=== PATIENT | male | born 2000 ===

== ENCOUNTER 2023-06-02 14:39 | Emergency (ER) | payer MEDICAID, SELFPAY ==
[2023-06-02] VITALS (22 sets, daily range): BP systolic 153–180; BP diastolic 79–117; PULSE 84–107; RESP 20; TEMP 36.1; O2SAT 96–100; BMI 35.9
[2023-06-02] MEDS: EPINEPHrine 0.3 MG PEN IM (14:50)
[2023-06-02] MEDS: CETIRIZINE HCL 10 MG TABLET PO (15:01)
[2023-06-02] MEDS: METHYLPREDNISOLONE SOD SUCC 62.5 MG/ML (125) 125 MG IVP (15:08)
[2023-06-02] MEDS: diphenhydrAMINE 50 MG/ML inj 25 MG IVP (15:08)
--- NOTE | 2023-06-02 15:24 | ED.NURSE ---
Pt reports swelling has gone down on his tongue. Improved ability to talk. Tongue has decreased swelling.
--- NOTE | 2023-06-02 16:54 | ED_ITS ---
HPI - General Adult General Chief complaint: Allergic Reaction Stated complaint: Stung in tongue Time Seen by Provider: 06/02/23 14:46 Source: patient Mode of arrival: ambulatory Limitations: no limitations History of Present Illness HPI narrative: 23-year-old male coming into the ER after being stung by a bee on his tongue approximately 20 minutes ago. He states that his tongue is swollen. He denies any swelling of the lips or the back of the throat. He states that he can swallow but that his tongue feels like it is taking up a lot of space in his mouth he is having a hard time talking because of that. He denies feeling dizzy or lightheaded. He is not short of breath. He denies having a bee allergy in the past. Related Data Home Medications Medication Instructions Recorded Confirmed hydrochlorothiazide 25 mg tablet 25 mg PO DAILY 06/02/23 06/02/23 Allergies Allergy/AdvReac Type Severity Reaction Status Date / Time No Known Drug Allergies Allergy Verified 06/02/23 14:56 Review of Systems Status of ROS: Reports: 10 or more systems reviewed and unremarkable except as noted in History and below PFSH PFS Social History Smoking Status: Never smoker Do you use any of these nicotine containing products: None Second hand tobacco smoke exposure: No How often do you have a drink containing alcohol: 2-4 times a month How often do you have six or more drinks on one occasion: Never AUDIT-C Alcohol total score: 2 Non-prescribed substance use: marijuana (any form) service: No Exam Narrative: Exam Narrative: Obese, well-developed patient in no acute distress. Alert and oriented. Answers questions appropriately. Mood and affect are appropriate. Thoughts are goal oriented and rational. No tangential or magical thinking noted. Patient speaks in full sentences without needing to catch his breath. Blood pressure is elevated, vitals are otherwise normal. His voice does sound normal but he can not enunciate words properly. HEENT: Normocephalic atraumatic. Pupils are equally round reactive to light. Extraocular muscles are intact. Conjunctivae are moist without any icterus noted. Moist mucous membranes. Posterior pharynx is normal. Neck is soft without any lymphadenopathy or thyromegaly. No masses are appreciated. Tongue is swollen on the right side only. Lips appear normal, soft palate is not swollen. Cardiovascular: Heart is regular rate and rhythm S1 and S2 are present without any murmurs. Lungs: Clear to auscultation bilaterally no wheezes rhonchi or rales are appreciated. Patient takes deep breaths without any discomfort. Abdomen: Soft and nontender nondistended with normal bowel sounds. Extremities: Bilateral lower extremities are without edema. Skin: Well perfused without any obvious rashes. Const: Vital Signs, click to edit/add: Vital Signs - 24 hr 06/02/23 14:45 06/02/23 14:49 06/02/23 14:50 Temperature 97 F L Pulse Rate 100 103 H Pulse Rate [Pulse Oximeter] 100 Respiratory Rate 20 Blood Pressure 172/112 H Blood Pressure [Ri ght Upper Arm] 172/117 H Pulse Oximetry 98 97 96 Oxygen Delivery Me thod Room Air 06/02/23 15:01 06/02/23 15:05 06/02/23 15:15 Temperature Pulse Rate 105 H 93 Pulse Rate [Pulse Oximeter] Respiratory Rate Blood Pressure 180/96 H Blood Pressure [Ri ght Upper Arm] Pulse Oximetry 99 100 98 Oxygen Delivery Me thod 06/02/23 15:18 06/02/23 15:19 06/02/23 15:30 Temperature Pulse Rate 102 H 107 H 89 Pulse Rate [Pulse Oximeter] Respiratory Rate Blood Pressure 174/102 H Blood Pressure [Ri ght Upper Arm] Pulse Oximetry 98 99 99 Oxygen Delivery Me thod 06/02/23 15:32 06/02/23 15:33 06/02/23 15:47 Temperature Pulse Rate 96 91 Pulse Rate [Pulse Oximeter] Respiratory Rate Blood Pressure 160/85 H 160/104 H Blood Pressure [Ri ght Upper Arm] Pulse Oximetry 98 100 Oxygen Delivery Me thod 06/02/23 16:00 06/02/23 16:02 06/02/23 16:17 Temperature Pulse Rate 86 92 89 Pulse Rate [Pulse Oximeter] Respiratory Rate Blood Pressure 165/94 H 153/99 H Blood Pressure [Ri ght Upper Arm] Pulse Oximetry 98 97 97 Oxygen Delivery Me thod Course Course Hospital Course: Do not believe the patient is having inflected reaction, however given the fact that his tongue swelling and he feels that it is getting bigger we did give him a dose of epinephrine IM, Solu-Medrol Benadryl IV. He was monitored for 2 hours. The swelling of his tongue did go down. He was able to speak in a more normal manner. He did not feel short of breath. He denied having difficulty speaking or swallowing. He did not have any difficulty breathing. Vital Signs Vital signs: Initial Vital Signs Temperature 97 F L 06/02/23 14:45 Temperature Source Temporal Artery Scan 06/02/23 14:45 Pulse Rate 100 06/02/23 14:45 Pulse Rhythm Regular 06/02/23 14:45 Respiratory Rate 20 06/02/23 14:45 Blood Pressure 172/117 H 06/02/23 14:45 Blood Pressure Mean 135 H 06/02/23 14:45 Blood Pressure Position Supine 06/02/23 14:45 Pulse Oximetry 98 06/02/23 14:45 Oxygen Delivery Method Room Air 06/02/23 14:45 Vital Signs Temperature 97 F L 06/02/23 14:45 Pulse Rate 100 06/02/23 14:45 Respiratory Rate 20 06/02/23 14:45 Blood Pressure 172/117 H 06/02/23 14:45 Pulse Oximetry 98 06/02/23 14:45 Oxygen Delivery Method Room Air 06/02/23 14:45 Temperature 97 F L 06/02/23 14:45 Pulse Rate 89 06/02/23 16:17 Respiratory Rate 20 06/02/23 14:45 Blood Pressure 153/99 H 06/02/23 16:17 Pulse Oximetry 97 06/02/23 16:17 Oxygen Delivery Method Room Air 06/02/23 14:45 Medical Decision Making MDM Narrative Medical decision making narrative: Bee sting, treated per above. Patient takes daily Zyrtec which she is instructed to continue doing at this time. No further treatment necessary. Discharge Plan Discharge Clinical Impression: Bee sting Patient Disposition: Home, Self-Care Condition: Stable Additional Instructions: Continue your daily allergy medication. Okay to take ibuprofen or Tylenol as needed for discomfort of the tongue. If you feel like it is swelling again or if you are having difficulty breathing or swallowing you should return to the [facility]. Prescriptions: No Action hydrochlorothiazide 25 mg tablet 25 mg PO DAILY Follow Up/Referrals: Provider,Not a Local [Primary Care Provider] - Stand Alone Forms: [employer]th Info Instructions
== END 2023-06-02 17:11 | disposition home or self-care (01) ==
PROVIDERS: Emergency Provider Family Medicine
DX: T63.441A Toxic effect of venom of bees, accidental (unintentional), initial encounter (principal)
CPT/HCPCS: 94761; 96372; 96374; 96375; 99283; 99284; A9270; J0171; J1200; J2930

== ENCOUNTER 2023-12-07 01:57 | Emergency (ER) | payer MEDICAID, SELFPAY ==
[2023-12-07 02:04] VITALS: BP 150/90; PULSE 91; RESP 16; TEMP 36.1; O2SAT 99; BMI 38.3
[2023-12-07 02:57] LABS: PCR FLU A Negative PCR FLU A (Negative); PCR FLU B Negative PCR FLU B (Negative); PCR RSV Negative PCR RSV (Negative); SARS PCR* Negative SARS-CoV-2 (Negative)
--- NOTE | 2023-12-07 03:12 | ED_ITS ---
HPI - General Adult General Chief complaint: Unspecified Complaint, Adult Stated complaint: Numbness in both hand and and knees Time Seen by Provider: 12/07/23 02:50 Source: patient Mode of arrival: ambulatory History of Present Illness HPI narrative: 23-year-old male in presents the emergency department in the middle of the night nonspecific symptoms. He reports that he was sitting, watching a movie earlier this evening when his bilateral palms became numb, this radiates up to the elbow. This is been equal bilaterally and an ongoing problem for him. Is not associated with weakness, trauma or injury. No difficulty moving the hand. It does tend to improve with movement and repositioning. Symptoms lasted an hour or 2, now better. After he went home from moving, he reports that he vomited. On specific questioning, it is quite clear that he has chronic nausea and vomiting. He does smoke marijuana daily. He has been eating and drinking normally. He has seen his provider multiple times for this and is prescribed omeprazole and was recently started on Carafate. It sounds like for the last few days on Carafate, he actually had been feeling overall better but then did vomit x1. He says that there was not as much morning of nausea prior to the vomiting which was different than usual for him. There is no bloody vomit, no blood in his stools, no chest pain. He admits to some anxiety. No shortness of breath. He is accompanied by a significant other who backs up his story that these are very frequent symptoms. He has no stroke-like symptoms or focal neurological changes. He did not try any new treatments to help with his symptoms today. Past medical history notable for GERD, daily marijuana use. Denies alcoholism. No long-term medications or allergies. ROS notable for the generalized, neurological and GI changes as above, otherwise denies times 12 systems. Related Data Home Medications Medication Instructions Recorded Confirmed hydrochlorothiazide 25 mg tablet 25 mg PO DAILY 06/02/23 06/02/23 Allergies Allergy/AdvReac Type Severity Reaction Status Date / Time No Known Drug Allergies Allergy Verified 06/02/23 14:56 [facility] Social History Smoking Status: Never smoker Do you use any of these nicotine containing products: None Second hand tobacco smoke exposure: No How often do you have a drink containing alcohol: 2-4 times a month How often do you have six or more drinks on one occasion: Never AUDIT-C Alcohol total score: 2 Non-prescribed substance use: marijuana (any form) service: No Exam Const: Vital Signs, click to edit/add: Vital Signs - 24 hr 12/07/23 02:04 12/07/23 03:22 Temperature 97.0 F L Pulse Rate [Left F emoral] 91 72 Respiratory Rate 16 16 Blood Pressure [Ri ght Upper Arm] 150/90 H Pulse Oximetry 99 98 Oxygen Delivery Me thod Room Air Room Air Documenting provider has reviewed patient's vital signs: yes Common normals: oriented x3 Other: Mildly anxious but well nourished and well hydrated. No intoxication. Friendly and cooperative. HENMT: Common normals: normocephalic and head/scalp atraumatic Head and scalp: normocephalic and atraumatic Face and sinus: normal facial exam Mouth: oral and palatal mucosa normal Throat: posterior oropharynx normal Eye: Common normals: conjunctivae normal General eye: normal appearance of both eyes Conjunctiva: conjunctiva(e) normal Neck & C-Spine: Common normals: full ROM and no lymphadenopathy Other: Poor posture with chronic increased lordosis and ?buffalo hump? of chronic poor posture. Chronic rounding of the shoulders. No point bony tenderness to the ce rvical spine. Cannot reproduce symptoms with movement of the neck. Resp: Common normals: normal respiratory effort, no use of accessory muscles and clear to auscultation bilaterally Effort & inspection: able to speak in complete sentences Auscultation: clear to auscultation bilaterally Cardio: Common normals: regular rate, regular rhythm, S1 normal heart sound, S2 normal heart sound and no murmurs Rate: regular rate Rhythm: regular rhythm Heart sounds: S1 normal and S2 normal GI: Common normals: Normal to inspection, nondistended, normoactive bowel sounds present, soft to palpation, no hepatosplenomegaly and no masses Palpation: soft and no hepatosplenomegaly Other: Mild tenderness to epigastrium only, no rebound tenderness, guarding or mass. Difficult to palpate the edges of the internal organs due to obesity. Extremity: Common normals: normal to inspection, full ROM and normal capillary refill Other: Hand with normal range of motion and function, no muscle wasting. Normal range of motion of wrists. Normal appearance of forms Neuro: Common normals: oriented x3, moves all extremities and no focal motor deficits Motor exam: strength 5/5 throughout, no tremor noted and no movement abnormalities noted Psych: Attitude: engaged Activity/motor behavior: appropriate eye contact Other: Mildly anxious but appropriate insight, reasoning and judgment. Skin: Common normals: no rashes or lesions noted General skin exam: no rashes or lesions noted Course Course ED Course: Intermittent paresthesias, differential diagnosis including bilateral carpal tunnel syndrome, thoracic outlet syndrome, myelopathy. Less likely central origin or spinal cord origin. Most likely etiology is chronic muscle tension and poor posture. Counseled patient on this, he agrees that this is most likely the etiology. Discussed Tylenol and ibuprofen but stressed the importance of physical therapy to help correct the underlying etiology. Alarm symptoms reviewed that would warrant ED presentation and he verbalizes understanding and agreement. Do not recommend further imaging at this time unless the course of physical therapy is unsuccessful. Consider EMG if not improving. As for the episode of vomiting and his chronic vomiting issues. He then tells me that his landlord loaned him a supply of Zofran and this was not helpful in the past. The story does sound suspicious for cannabis hyperemesis. When I discussed this with him, he took a conversation quite well. I encouraged him to try an abrupt and absolute discontinuation of THC and cannabis containing products for at least 3 weeks and see if his symptoms improve. Continue the Carafate and omeprazole in the interim. Counseled patient that he should follow up with his primary care provider in 3-4 weeks to see how things are going. If he is able to give up the marijuana completely, I think this would be helpful. If he is not able, a consideration of olanzapine at bedtime may be helpful for him. Consider endoscopy if any red flags. Alarm symptoms reviewed with patient that would warrant ED presentation regarding this as well. No further questions, see discharge instructions. Viral swabs are negative today. Vital Signs Vital signs: Initial Vital Signs Temperature 97.0 F L 12/07/23 02:04 Temperature Source Temporal Artery Scan 12/07/23 02:04 Pulse Rate 91 12/07/23 02:04 Pulse Rhythm Regular 12/07/23 02:04 Respiratory Rate 16 12/07/23 02:04 Blood Pressure 150/90 H 12/07/23 02:04 Blood Pressure Mean 110 H 12/07/23 02:04 Blood Pressure Position Sitting 12/07/23 02:04 Pulse Oximetry 99 12/07/23 02:04 Oxygen Delivery Method Room Air 12/07/23 02:04 Vital Signs Temperature 97.0 F L 12/07/23 02:04 Pulse Rate 91 12/07/23 02:04 Respiratory Rate 16 12/07/23 02:04 Blood Pressure 150/90 H 12/07/23 02:04 Pulse Oximetry 99 12/07/23 02:04 Oxygen Delivery Method Room Air 12/07/23 02:04 Temperature 97.0 F L 12/07/23 02:04 Pulse Rate 72 12/07/23 03:22 Respiratory Rate 16 12/07/23 03:22 Blood Pressure 150/90 H 12/07/23 02:04 Pulse Oximetry 98 12/07/23 03:22 Oxygen Delivery Method Room Air 12/07/23 03:22 Medical Decision Making Lab Data Lab results reviewed: Yes I reviewed the patient's lab results Lab results narrative: Negative, as expected Labs: Lab Results 12/07/23 Range/Units 02:15 SARS-CoV-2 (PCR) Negative SARS-CoV-2 (Negative) Influenza Type A (PCR) Negative PCR FLU A (Negative) Influenza Type B (PCR) Negative PCR FLU B (Negative) RSV (PCR) Negative PCR RSV (Negative) Discharge Plan Discharge Clinical Impression: Paresthesia and pain of both upper extremities, Cannabis hyperemesis syndrome concurrent with and due to cannabis abuse Patient Disposition: Home, Self-Care Condition: Stable Instructions: Paresthesia (ED) Additional Instructions: As we discussed, the numbness in your palms is related to poor posture and compression of the nerve either at your upper back or near your armpits. This is a chronic condition and tends to be worse with prolonged sitting or computer use. You would benefit from physical therapy. A referral can be sent from her primary care provider or you may self-referred to a physical therapy office for further treatment. Focus on posture, proper shoulder and neck alignment. It is okay to use Tylenol and ibuprofen for discomfort. There are no signs of stroke or other dangerous neurological condition today. If things are not improving after physical therapy, I recommend following up with her primary care provider for additional neurological workup. I do suspect that your GI symptoms are related to chronic marijuana use. Unfortunately, this is a frequently seen condition. Continue using the medication that you have been prescribed. I would strongly encourage you to do a trial of absolute THC and cannabis elimination for minimum of 3 weeks, preferably 4. Most fine marked improvement in their GI symptoms near the end of that trial. Cutting down is not sufficient. Most of the time, if you find that the condition is related to cannabis use, restarting marijuana in any form restarts your GI symptoms. There is a medication called olanzapine which can be prescribed at bedtime if your primary care provider thinks this is worthwhile. This often can help with cannabis hyperemesis syndrome. If you get into a vomiting spell that last several hours again like the 1 you described, very hot showers can be helpful. The only treatment is complete elimination of the THC. Discuss this further with your primary care provider if your not noticing improvement after 1 month of discontinuation of marijuana. If you have severe persistent abdominal pain and or bloody vomiting or stools, you should come to the emergency department. Activity Level: No Restrictions Discharge Diet: Regular Prescriptions: No Action hydrochlorothiazide 25 mg tablet 25 mg PO DAILY Follow Up/Referrals: Provider,Not a Local [Referring] - Stand Alone Forms: [employer] Info Instructions
[2023-12-07 03:22] VITALS: PULSE 72; RESP 16; O2SAT 98
== END 2023-12-07 03:23 | disposition home or self-care (01) ==
PROVIDERS: Emergency Provider Family Medicine; PCP Family Medicine
DX: R20.2 Paresthesia of skin (principal); F12.188 Cannabis abuse with other cannabis-induced disorder
CPT/HCPCS: 87631; 99283

== ENCOUNTER 2024-03-01 04:33 | Emergency (ER) | payer MEDICAID, SELFPAY ==
[2024-03-01 04:51] VITALS: BP 134/81; PULSE 84; RESP 16; TEMP 36.2; O2SAT 99; BMI 38.7
--- NOTE | 2024-03-01 05:19 | CRLHL7_ITS ---
For Patients: As a result of the Century Cures Act, medical imaging exams and procedure reports are released immediately into your electronic medical record. You may view this report before your referring provider. If you have questions, please contact your health care provider. INDICATION: mid abdominal pain, nausea TECHNIQUE: CT abdomen and pelvis with 132 cc Isovue 370 IV contrast. COMPARISON: None. FINDINGS: Hepatomegaly and hepatic steatosis. Gallbladder and biliary tree are normal. The spleen, adrenal glands and pancreas are within normal limits. Small hiatal hernia. No evidence of bowel obstruction or inflammation. Mild stool burden throughout the colon. Mild bladder wall thickening which may relate to incomplete distention but recommend correlation with urinalysis if there is concern for cystitis. Additionally, there is likely mil minimal d left hydronephrosis with no visualized nephrolithiasis. Ascending urinary tract infection can not entirely be excluded although the kidneys enhance symmetrically without evidence of pyelonephritis. No significant free fluid and no free air. Abdominal aorta normal in caliber. No enlarged lymph nodes by size criteria. Pelvic organs are unremarkable. The lower chest is unremarkable. IMPRESSION: 1. Mild bladder wall thickening which may relate to incomplete distention but recommend correlation with urinalysis if there is concern for cystitis. Additionally, there is likely minimal left hydronephrosis with no visualized nephrolithiasis. Ascending urinary tract infection can not entirely be excluded although the kidneys enhance symmetrically without evidence of pyelonephritis. 2. Hepatomegaly and hepatic steatosis. 3. Small hiatal hernia. Please note that all CT scans at this facility use dose modulation, iterative reconstruction, and/or weight-based dosing when appropriate to reduce radiation dose to as low as reasonably achievable. Dictated by Jimmie Perez MD @ 03/01/2024 6:59:46 AM (Electronically Signed)
--- NOTE | 2024-03-01 05:20 | ED.GENADULT ---
HPI - General Adult General Chief complaint: Nausea/Vomiting Stated complaint: vomit Time Seen by Provider: 03/01/24 05:00 Source: patient Mode of arrival: ambulatory Limitations: no limitations History of Present Illness HPI narrative: 24-year-old male, multiple times per day marijuana smoker presents to the emergency department for evaluation of abdominal pain with nausea and vomiting. No fever, no trauma or injury. No bloody stools or diarrhea. Vomiting is bilious in nature. He has had intermittent issues with abdominal pain, reports workup through [facility] including what sounds like an ultrasound. He may have had gallstones but he is not completely sure. He was not referred for surgery. He reports that he was started on omeprazole and his symptoms did improve. He stopped taking the medication after a month or so and things were going fine. He started having increased nausea 4 days ago and was evaluated at the clinic again. He states that he was referred for a different type of gallbladder test. It sounds like this was a HIDA scan but my log in for their EMR system is not currently working. He reports he was also referred for an endoscopy and that is scheduled for May. He is uncertain if he has had H pylori testing. No bloody stools. No dysuria. No prior history of abdominal surgeries. Abdominal pain comes in crampy waves, worse with movement. No prior history of abdominal surgeries. Denies recent alcohol intake. Past medical history notable for hypertension, chronic marijuana use, denies other drugs. No known drug allergies. Home meds are lisinopril and omeprazole which he only restarted a few days ago. Reports no pertinent family history. Does not smoke tobacco. ROS is notable for the GI symptoms as above only, otherwise denies times 12 systems. Related Data Home Medications ?Medication ?Instructions ?Recorded ?Confirmed lisinopril 20 1 tab PO DAILY 03/01/24 03/01/24 mg-hydrochlorothiazide 25 mg tablet omeprazole 40 mg capsule,delayed 40 mg PO QAM 03/01/24 03/01/24 release Allergies Allergy/AdvReac Type Severity Reaction Status Date / Time No Known Drug Allergies Allergy Verified 06/02/23 14:56 [facility] Social History Smoking Status: Never smoker Do you use any of these nicotine containing products: None Second hand tobacco smoke exposure: No How often do you have a drink containing alcohol: 2-4 times a month How often do you have six or more drinks on one occasion: Never AUDIT-C Alcohol total score: 2 Non-prescribed substance use: marijuana (any form) service: No Exam Const: Vital Signs, click to edit/add: Vital Signs - 24 hr 03/01/24 04:51 Temperature 97.2 F L Pulse Rate [Pulse Oximeter] 84 Respiratory Rate 16 Blood Pressure [Ri ght Upper Arm] 134/81 Pulse Oximetry 99 Oxygen Delivery Me thod Room Air Documenting provider has reviewed patient's vital signs: yes Common normals: no apparent distress and alert General appearance: cooperative and well kempt Other: Moderate historian. Cooperative. HENMT: Common normals: normocephalic, moist oral mucous membranes and oropharynx normal Head and scalp: normocephalic Eye: Common normals: conjunctivae normal General eye: normal appearance of both eyes Conjunctiva: conjunctiva(e) normal Neck & C-Spine: Common normals: no lymphadenopathy General: normal visual inspection Resp: Common normals: normal respiratory effort, no use of accessory muscles and clear to auscultation bilaterally Effort & inspection: able to speak in complete sentences Auscultation: clear to auscultation bilaterally Cardio: Common normals: regular rate, regular rhythm, S1 normal heart sound, S2 normal heart sound and no murmurs Rate: regular rate Rhythm: regular rhythm Heart sounds: S1 normal and S2 normal GI: Common normals: Normal to inspection, nondistended, normoactive bowel sounds present, soft to palpation, no hepatosplenomegaly and no masses Palpation: soft and no hepatosplenomegaly Other: Obese but soft. Difficult to palpate organs due to obesity. Mildly diffusely tender with no rebound tenderness or guarding. Palpation does increase his reported nausea. Extremity: Common normals: normal to inspection, normal capillary refill and no pedal edema Neuro: Sensorium/orientation: alert Speech: speech normal Motor exam: strength 5/5 throughout and no movement abnormalities noted Psych: Appearance: well kempt Activity/motor behavior: appropriate eye contact Insight: fair Judgement: fair Skin: Common normals: no rashes or lesions noted General skin exam: no rashes or lesions noted Course Course ED Course: Mid abdominal pain, different from his baseline chronic abdominal pain with flare of vomiting. History of what sounds like gallstones. Differential diagnosis including gallstone pancreatitis, cholecystitis, gastroenteritis, colitis, obstruction, kidney stone, cyclic vomiting syndrome, gastritis, among others. Recommended typical labs looking for signs of gallbladder obstruction, pancreatitis, inflammation. Will give 4 mg of IV Zofran, CT of abdomen pelvis. We do not have ultrasound available for about another hour and a half. If needed, can order right upper quadrant ultrasound if labs are suspicious for gallbladder disease. No Bennett sign present on today's exam. Reevaluation(s) Time of Reevaluation #1: 07:13 Reevaluation #1: Discussed findings with patient. Labs are very reassuring. His urinalysis does not seem suspicious for infection, I do not think that the CT findings which were borderline are consistent with an ascending bladder infection. He is not having any urinary symptoms either. He does seem to have some mild constipation, will give Colace for this. Counseled patient that his chronic symptoms could be related to his chronic marijuana use and we did discuss this. He was fairly receptive to the conversation. For now, he will keep his HIDA scan for tomorrow, he will keep taking his omeprazole. He will make a follow-up appointment with his primary care doctor to discuss his response to the omeprazole. He was encouraged to try to stop the marijuana for 4-6 weeks to see if his abdominal symptoms improved. He will also keep his upcoming endoscopy appointment. Written instructions outlining alarm symptoms that would warrant repeat ED presentation were provided. Likely chronic abdominal pain secondary to chronic cannabis use. Vital Signs Vital signs: Initial Vital Signs Temperature 97.2 F L 03/01/24 04:51 Temperature Source Temporal Artery Scan 03/01/24 04:51 Pulse Rate 84 03/01/24 04:51 Respiratory Rate 16 03/01/24 04:51 Blood Pressure 134/81 03/01/24 04:51 Blood Pressure Mean 98 03/01/24 04:51 Blood Pressure Position Sitting 03/01/24 04:51 Pulse Oximetry 99 03/01/24 04:51 Oxygen Delivery Method Room Air 03/01/24 04:51 Vital Signs Temperature 97.2 F L 03/01/24 04:51 Pulse Rate 84 03/01/24 04:51 Respiratory Rate 16 03/01/24 04:51 Blood Pressure 134/81 03/01/24 04:51 Pulse Oximetry 99 05/28/24 04:51 Oxygen Delivery Method Room Air 03/01/24 04:51 Temperature 97.2 F L 03/01/24 04:51 Pulse Rate 84 03/01/24 04:51 Respiratory Rate 16 03/01/24 04:51 Blood Pressure 134/81 03/01/24 04:51 Pulse Oximetry 99 03/01/24 04:51 Oxygen Delivery Method Room Air 03/01/24 04:51 Medications Administered Medications: Discontinued Medications Generic Name Dose Route Start Last Admin Trade Name Freq PRN Reason Stop Dose Admin Ondansetron HCl 4 mg 03/01/24 05:19 03/01/24 05:29 Ondansetron 2 Mg/Ml Inj IVP 03/01/24 05:20 4 mg ONCE ONE Administration Medical Decision Making Lab Data Lab results reviewed: Yes I reviewed the patient's lab results Lab results narrative: Labs very reassuring. Labs: Lab Results 03/01/24 Range/Units 05:27 WBC 9.55 (4.50-11.00) K/uL RBC 4.76 (4.30-5.90) m/uL Hgb 13.7 (13.5-17.5) gm/dL Hct 41.4 (37.0-53.0) % MCV 87 (80-100) fL MCH 29 (26-34) pg MCHC 33 (32-36) gm/dL RDW Coeff of Lee 12.8 (11.5-15.5) % Plt Count 297 (140-440) K/uL Neut % (Auto) 56.8 (42.0-72.0) % Lymph % (Auto) 32.9 (20-44) % [place] % (Auto) 8.1 (0.0-11.0) % Eos % (Auto) 1.6 (0.0-7.0) % Baso % (Auto) 0.3 (0.0-3.0) % Neut # (Auto) 5.43 (1.7-7.0) K/uL Lymph # (Auto) 3.14 H (0.90-2.90) K/uL [place] # (Auto) 0.80 (0.00-0.90) K/UL Eos # (Auto) 0.15 (0.00-0.50) K/uL Baso # (Auto) 0.03 (0.00-0.30) K/uL Abs Immat Gran (auto) 0.03 (0.00-0.30) K/uL Imm/Tot Granulo (auto) 0.3 % Sodium 139 (135-149) mmol/L Potassium 3.8 (3.6-5.1) mmol/L Chloride 106 (96-114) mmol/L Carbon Dioxide 28 (20-32) mmol/L Anion Gap 5 L (7-15) mEq/L BUN 15 (5-24) mg/dL Creatinine 0.7 (0.5-1.5) mg/dL Estimated Creat Clear 170.91 Estimated GFR 134 ml/min Glucose 117 H (60-115) mg/dL Calcium 8.7 (8.4-10.6) mg/dL Total Bilirubin 0.5 (0.1-1.5) mg/dL AST 25 (12-35) U/L ALT 30 (4-50) U/L Alkaline Phosphatase 90 (40-150) U/L C-Reactive Protein 0.6 (0.5-1.0) mg/dL Total Protein 7.7 (6.0-8.3) g/dL Albumin 4.5 (3.3-5.0) g/dL Lipase 52 (23-300) U/L Urine Color Yellow (Yellow) Urine Appearance Clear (Clear) Urine pH 5.5 (5.0-8.5) Ur Specific [place] 1.020 (1.000-1.030) Urine Protein Negative (Negative) Urine Glucose (UA) Negative (Negative) Urine Ketones Negative (Negative) Urine Blood Trace-lysed A (Negative) Urine Nitrite Negative (Negative) Urine Bilirubin Negative (Negative) Urine Urobilinogen 0.2 (0.2-1.0) Ur Leukocyte Esterase Negative (Negative) Imaging Data CT scan - abdomen: Attestation: I have reviewed the pertinent imaging results. My impression: Mild constipation with no evidence of obstruction. No signs of inflammation, gastritis. Radiologist's impression: IMPRESSION: 1. Mild bladder wall thickening which may relate to incomplete distention but recommend correlation with urinalysis if there is concern for cystitis. Additionally, there is likely minimal left hydronephrosis with no visualized nephrolithiasis. Ascending urinary tract infection can not entirely be excluded although the kidneys enhance symmetrically without evidence of pyelonephritis. 2. Hepatomegaly and hepatic steatosis. 3. Small hiatal hernia. Discharge Plan Discharge Clinical Impression: Abdominal pain, recurrent Patient Disposition: Home w/ Parent or Adult Condition: Stable Instructions: Chronic Abdominal Pain (DC) Additional Instructions: As we discussed, your labs look great and the CT does not show any signs of significant abnormality. This is great news. I am sorry that the anti nausea medicine was not more effective for you. You are mildly constipated though this would not explain your vomiting. You were given some stool softeners to help kick start things moving. Keep your appointment for your HIDA scan tomorrow. Keep your appointment for your endoscopy. Keep taking your omeprazole. This should help within the next few days if your pain is related to gastric reflux. As we discussed, your symptoms could be related to your chronic marijuana use. There is no test to tell me for sure. I only have reassurance on the other issues. The only way to tell is for you to quit smoking marijuana entirely for at least the next 4 weeks, possibly 6 weeks and see if your symptoms improve. I would like for you to follow-up with your primary care doctor in 2 weeks. At that time, if the omeprazole is not helping, you could consider a trial of olanzapine, the anti nausea medicine that can help some people with cyclic vomiting syndrome secondary to chronic marijuana use. Activity Level: No Restrictions Discharge Diet: Regular Prescriptions: No Action omeprazole 40 mg capsule,delayed release(DR/EC) 40 mg PO QAM lisinopril-hydrochlorothiazide 20-25 mg tablet 1 tab PO DAILY Follow Up/Referrals: Amy Willis MD [Primary Care Provider] - Stand Alone Forms: [employer] Info Instructions
[2024-03-01] MEDS: ONDANSETRON 2 MG/ML inj 4 MG IVP (05:29)
[2024-03-01 05:41] LABS: Basophils Absolute Auto 0.03 K/uL (0.00-0.30); Basophils Percent Auto 0.3 % (0.0-3.0); Eosinophils Absolute Auto 0.15 K/uL (0.00-0.50); Eosinophils Percent Auto 1.6 % (0.0-7.0); Hematocrit 41.4 % (37.0-53.0); Hemoglobin* 13.7 gm/dL (13.5-17.5); Immature Granulocytes Abs Auto 0.03 K/uL (0.00-0.30); Immature Granulocytes Pct Auto 0.3 %; Lymphocytes Absolute Auto 3.14 K/uL (0.90-2.90); Lymphocytes Percent Auto 32.9 % (20-44); Mean Corpuscular HGB Conc 33 gm/dL (32-36); Mean Corpuscular Hemoglobin 29 pg (26-34); Mean Corpuscular Volume 87 fL (80-100); Monocytes Percent Auto 8.1 % (0.0-11.0); Neutrophils Absolute Auto 5.43 K/uL (1.7-7.0); Neutrophils Percent Auto 56.8 % (42.0-72.0); Platelet Count* 297 K/uL (140-440); RDW Coefficient of Variation % 12.8 % (11.5-15.5); Red Blood Count 4.76 m/uL (4.30-5.90); White Blood Count* 9.55 K/uL (4.50-11.00)
[2024-03-01 05:43] LABS: Appearance Urine Clear (Clear); Bilirubin Urine Negative (Negative); Blood Urine Trace-lysed (Negative); Color Urine Yellow (Yellow); Glucose Urine Negative (Negative); Ketones Urine Negative (Negative); Leukocyte Esterase Urine Negative (Negative); Nitrite Urine Negative (Negative); Protein Urine Negative (Negative); Slide Review Reflex No; Urobilinogen Urine 0.2 (0.2-1.0); pH Urine 5.5 (5.0-8.5)
[2024-03-01 05:55] LABS: Chloride* 106 mmol/L (96-114); Sodium* 139 mmol/L (135-149)
[2024-03-01 05:56] LABS: Albumin* 4.5 g/dL (3.3-5.0); Potassium* 3.8 mmol/L (3.6-5.1)
[2024-03-01 05:59] LABS: Alanine Aminotransferase* 30 U/L (4-50); Alkaline Phosphatase* 90 U/L (40-150); Anion Gap 5 mEq/L (7-15); Aspartate Amino Transferase* 25 U/L (12-35); Bilirubin Total* 0.5 mg/dL (0.1-1.5); Blood Urea Nitrogen* 15 mg/dL (5-24); Carbon Dioxide* 28 mmol/L (20-32); Creatinine* 0.7 mg/dL (0.5-1.5); Est. Creatinine Clearance* 170.91; Estimated Glomerular Filt Rate 134 ml/min; Glucose* 117 mg/dL (60-115); Lipase* 52 U/L (23-300); Total Protein* 7.7 g/dL (6.0-8.3)
[2024-03-01 06:00] LABS: Calcium* 8.7 mg/dL (8.4-10.6)
[2024-03-01 06:02] LABS: C Reactive Protein* 0.6 mg/dL (0.5-1.0)
[2024-03-01] MEDS: DOCUSATE SODIUM 100 MG CAPSULE 200 MG PO (07:29)
[2024-03-01 23:14] LABS: RBC Urine 0-2 (0-2); Squamous Epithelial Cell Urine Few (None-Few); WBC Urine 0-2 (0-5)
== END 2024-03-01 07:38 | disposition home or self-care (01) ==
PROVIDERS: Emergency Provider Family Medicine; PCP Family Medicine
DX: R10.9 Unspecified abdominal pain (principal)
CPT/HCPCS: 36415; 74177; 80053; 81001; 81003; 83690; 85025; 86140; 96374; 99284; 99285; A9270; J2405; Q9967

== ENCOUNTER 2024-03-21 06:03 | Day surgery (SDC) | payer MEDICAID, SELFPAY ==
[2024-03-21] VITALS (20 sets, daily range): BP systolic 139–1176; BP diastolic 93–123; PULSE 77–106; RESP 16–20; TEMP 36.4–36.7; O2SAT 94–100; BMI 40.6
--- OUTSIDE RECORDS SUMMARY | 2024-03-21 06:05 | XMS_ITS | Clinical Summary ---
Author Organization [facility] Address [place], [place] [address] Care Team Providers Care Grain Picker Name Role Phone Tonja Polk Primary Care Provider [phone]- [phone] Allergies No known active allergies Medications Medication Sig Dispensed Refills Start Date End Date Status lisinopril-hydro chlorothiazide, 20-25 mg, (PRINZIDE, ZESTORETIC) 20-25 mg per tablet Take 1 Tablet by mouth once daily. 09/10/2023 Active omeprazole (PRILOSEC) 40 mg Delayed-Release capsuleIndicatio ns:Chronic GERD Take 1 Capsule (40 mg) by mouth once daily before a meal. 90 Capsule 3 02/18/2024 Active Ventolin HFA 90 mcg/actuation inhaler INHALE 2 PUFFS BY MOUTH EVERY 15 MINUTES PRIOR TO EXERCISE AND NEEDED FOR WHEEZING OR SHORTNESS OF BREATH 04/10/2023 03/10/2024 Discontinued (*Med complete/Reg imen complete/Lev el of care change) sucralfate (CARAFATE) 1 gram tabletIndication s:Chronic GERD Take 1 Tablet (1 g) by mouth three times daily before meals for 7 days. 21 Tablet 02/26/2024 03/04/2024 Active Problems Problem Noted Date Diagnosed Date Dysfunctional gallbladder 03/10/2024 Chronic GERD 12/03/2023 HTN (hypertension) 12/03/2023 Encounters Date Type Department Care Team Description 03/10/2024 9:10 AM CDT Preop Visit [facility] [address] [place] [address] Tonja Polk PA Preoperative Exam (Dr. [facility]ll[facility] [place]-03/21/24) 03/10/2024 Travel 03/07/2024 1:30 PM CDT Office Visit [facility] [address] [place] [address] Antonio Ulloa MD Consult (Gallbladder referred by Tonja GUTIERREZ) 03/07/2024 Travel 03/04/2024 Orders Only [facility] [address] [place] [address] Tonja Polk PA <No scans attached> 03/02/2024 1:19 PM CDT - 03/02/2024 11:59 PM CDT Hospital Encounter [facility] [address] [place] [address] Tonja Polk PA Abdominal pain, RUQ (right upper quadrant) 03/02/2024 Travel 03/01/2024 Orders Only [facility] Scanner 1 scan: (1-Ord) [facility], ABD PELVIS W/CON, 03/01/2024 02/26/2024 10:10 AM CDT Office Visit [facility] [address] [place] [address] Tonja Polk PA Gi Problem (Having stomach pain again-sharp pains and nausea) 02/26/[address] [address] Chetan Akhtar MD Appointment 02/26/2024 Travel 02/17/2024 Refill [facility] [address] [place] [address] Tonja Polk PA Refill Request (omeprazole (PRILOSEC) 40 mg Delayed-Release capsule/) from Last 3 Months Immunizations Name Administration Dates Next Due DTaP 05/24/2007, 6,03/28/2004,12/01,2002,2002,2002 HIB PRP-T (ActHIB,Hiberix) 01/29/2006,,2002,06/14 HPV 9 (Gardasil 9) 12/10/2015 Hepatitis A (Peds) 05/24/2007,01/29/2006 Hepatitis B, Unspecified 2002,2002,0 2002 Human Papilloma Virus Vaccine 07/17/2015, 015 Inactivated Polio Vaccine 05/24/2007,,09/26/2005,12/01,04/09/2003,2002,2002 ,2002 Influenza A (H1N1), Inactivated 10/03/2009 Influenza Virus, Unspecified 08/23/2013, 07/26/2009,08/07/2008,09/07,01/30/2003 Influenza, IIV3 (Age >=3 years) 08/02/2010,09/07 Influenza, IIV4 08/20/2021, 0,07/20/2018,08/25 Influenza, Live, Intranasal Laiv3 07/17/2015,11/2010 Influenza,LAIV4 Live Intrana fernando (Flumist) 07/26/2020 MMR 12/01/2003,02/13/2003 MMRV 05/24/2007 Meningococcal Vaccine (Menactra) 05/18/2017,03/05 Pneumococcal conj 7-Valent (Prevnar 7) 6,08/17/2006 Pneumococcal, Unspecified 01/29/2006 Polio Virus, Unspecified 12/01/2003,09/0 03/2003,2002,06/14,2002 Tdap 03/19/2015 Varicella Vaccine 12/01/2003 meningococcal B, Recombinant 05/30/2019,05/24/20 18 Family History Medical History Relation Name Comments Good Health Mother Relation Name Status Comments Mother Social History Tobacco Use Types Packs/Day Years Used Date Smoking Tobacco: Never Passive Smoke Exposure: Yes Smokeless Tobacco: Never Tobacco Cessation:Counseling Given: Not Answered Alcohol Use Standard Drinks/Week Comments Not Currently 0 (1 standard drink = 0.6 oz pur e alcohol) PHQ-2 Answer Date Recorded PHQ-2 TOTAL SCORE 1 03/10/2024 Social Connections Answer Date Recorded Frequency of Communication with Friends and Fami ly 0 02/26/2024 Financial Resource Strain Answer Date R ecorded Difficulty of Paying Living Expenses 3 02/26/2024 Difficulty of Paying Living Expenses Not on file 02/26/2024 Food Insecurity Answer Date Recorded Worried About Running Out of Food in the Last Ye ar 1 02/26/2024 Transportation Needs Answer Date Record ed Lack of Transportation (Medical) 1 02/26/2024 Housing Stability Answer Date Recorded Unable to Pay for Housing in the Last Year 1 02/26/2024 Sex and Gender Information Value Date Recorded Sex Assigned at Not on file Gender Identity Not on file Sexual Orientation Not on file Obstetrics History Last Filed Vital Signs Vital Sign Reading Time Taken Comments Blood Pressure 136/80 03/10/2024 9:42 AM CDT Pulse 85 03/10/2024 9:12 AM CDT Temperature 37.6 ??C (99.7 ??F) 06/23/2023 4:53 PM CD T Respiratory Rate 14 06/23/2023 4:53 PM CDT Oxygen Saturation 99% 03/10/2024 9:12 AM CDT Inhaled Oxygen Concentration - - Weight 125.2 kg (276 lb) 03/10/2024 9:12 AM CDT Height 176.5 cm (5' 9.49) 03/10/2024 9:12 AM CD T Body Mass Index 40.19 03/10/2024 9:12 AM CDT Plan of Treatment Health Maintenance Due Date Last Done Comments HIV for age 15-65 2017 Hepatitis C screening for age 18-79 02/12/2020 COVID-19 vaccine series ( season) 2023 02/13/2021, 01/16/2021 Influenza for age 9-49 06/05/2024 , 07/26/2020, 11/03/2019, Additional history exists BMI (ht and wt on same day) for age 18+ 03/10/2025 03/10/2024 Depression screening for age 12+ 03/10/2025 03/10/2024 Tetanus booster 03/19/2025 03/19/2015 Pneumococcal series for age 6-64 Aged Out 09/16/2006, 08/17/2006, 01/29/2006 No longer eligible based on patient's age to complete this topic Tdap Completed 03/19/2015 HPV series for age 9-26 Completed 12/10/19 16, 07/17/2015, 03/19/2015 Procedures Procedure Name Priority Date/Time Associated Diagnosis Comments BASIC METABOLIC PANEL Routine 03/10/2024 9:49 AM CDT HTN (hypertension) NM HEPATOBILIARY IMAGING WITH EF Routine 03/02/2024 3:10 PM CDT Abdominal pain, RUQ (right upper quadrant) SCAN-CT INTERPRETATION 12:00 AM CDT from Last 3 Months Results * BASIC METABOLIC PANEL (03/10/2024 9:49 AM CDT) SODIUM 141 136 - 145 mmol/L 03/10/2024 6:51 PM CDT [facility] POTASSIUM 4.7 3.5 - 5.1 mmol/L 03/10/2024 6:51 PM CDT [facility] CHLORIDE 103 98 - 107 mmol/L 03/10/2024 6:51 PM CDT [facility] CO2,TOTAL 26 22 - 29 mmol/L 03/10/2024 6:51 PM CDT [facility] ANION GAP 12 5 - 18 03/10/2024 6:51 PM CDT [facility] GLUCOSE 94 70 - 99 mg/dL 03/10/2024 6:51 PM CDT [facility] CALCIUM 9.6 8.6 - 10.0 mg/dL 03/10/2024 6:51 PM CDT [facility] BUN 10 6 - 20 mg/dL 03/10/2024 6:51 PM CDT [facility] CREATININE 0.80 0.70 - 1.20 mg/dL 03/10/2024 6:51 PM CDT [facility] BUN/CREAT RATIO 13 10 - 20 6:51 PM CDT [facility] eGFR >90 >90 mL/min/1.7 3m2 03/10/2024 6:51 PM CDT [facility] Comment:As of 2021, eG FR is calculated by the CKD-EPI creatinine equation without race adjustment. ??eGFR can be influenced by muscle mass, exercise, and diet. ??The reported eGFR is an estimation only and is only applicable if the renal function is stable. Blood BLOOD SPECIMEN / Unknown Venipuncture / Unknown 03/10/2024 9:49 AM CDT 03/10/2024 9:49 AM CDT Tonja GUTIERREZ CHEMISTRY [facility] [address] [place] [address], [place] * NM HEPATOBILIARY IMAGING WITH EF (03/02/2024 3:10 PM CDT) Anatomical Region Laterality Modality LIVER Nuclear Medicine 03/02/2024 5:09 PM CDT Narrative 03/02/2024 5:09 PM CDT For Patients: ??As a result of the Cures Act, medical imaging exams and procedure reports are released immediately into your electronic medical record. ??You may view this report before your referring provider. ??If you have questions, please contact your health care provider. Indication: Right upper quadrant pain Technique: Nuclear medicine hepatobiliary scan with gallbladder ejection fraction per protocol after the intravenous administration of 5.4 millicuries technetium 99 M Mebrofenin and 2.5 micrograms of CCK. Comparison: Right upper quadrant ultrasound December 04, 2023 Findings: Normal hepatic extraction and excretion of the radiopharmaceutical. Prompt appearance of the common bile duct followed by the small bowel and then the gallbladder. Trace enterogastric reflux is noted, almost certainly clinically insignificant. Symptoms were reproduced after CCK. Visually there is decreased gallbladder contraction. Calculated gallbladder ejection fraction of 11 percent. Impression: Gallbladder dysfunction Dictated by Aung Whitehead MD @ 03/02/2024 5:09:58 PM (Electronically Signed) Procedure Note Aung Whitehead MD - 03/02/2024 For Patients: As a result of the Cures Act, medical imagingexams and procedure reports are released immediately into your electronicmedical record. You may view this report before your referring provider.If you have questions, please contact your health care provider. Indication: Right upper quadrant pain Technique: Nuclear medicine hepatobiliary scan with gallbladder ejection fraction perprotocol after the intravenous administration of 5.4 millicuriestechnetium 99 M Mebrofenin and 2.5 micrograms of CCK. Comparison: Right upper quadrant ultrasound December 04, 2023 Findings: Normal hepatic extraction and excretion of the radiopharmaceutical. Promptappearance of the common bile duct followed by the small bowel and thenthe gallbladder. Trace enterogastric reflux is noted, almost certainlyclinically insignificant. Symptoms were reproduced after CCK. Visuallythere is decreased gallbladder contraction. Calculated gallbladderejection fraction of 11 percent. Impression: Gallbladder dysfunction Dictated by Aung Whitehead MD @ 03/02/2024 5:09:58 PM (Electronically Signed) Tonja GUTIERREZ NM * SCAN-CT INTERPRETATION (03/01/2024 12:00 AM CDT) Anatomical Region Laterality Modality Other Scanner OTHER from Last 3 Months Care Teams Grain Picker Relationship Specialty Start Date End Date Tonja Polk PA [address] [place] [address] PCP - General Physician Dental Chair Assembler 03/01/24
--- OUTSIDE RECORDS SUMMARY | 2024-03-21 06:06 | XMS_ITS | Encounter Summary ---
Author Organization [facility] Address [address] [place] [address] Care Team Providers Care Decontamination Worker Name Role Phone Elsewhere, Pcp Primary Care Provider Unavailabl e Reason for Visit * Reason Comments Sinus Symptoms Drainage; ST, conges tion; nsl and head. Fatigued. Sx's since Thursday. Encounter Details Date Type Department Care Team (Late st Contact Info) Description 01/13/2024 5:45 PM CDT Office Visit Urgent Care, [facility], in [place], [place] [address] [place] [phone] Christopher Zee, P.A.-C. [address] [place] [address] Sinusitis Acute (Primary Dx) Discharge Disposition: Home or Self Care Social History Tobacco Use Types Packs/Day Years Used Date Smoking Tobacco: Never Smokeless Tobacco: Never Tobacco Cessation:Counseling Given: Not Answered Comments:vape Alcohol Use Standard Drinks/Week Comments Never 0 (1 standard drink = 0.6 oz pur e alcohol) AUDIT-C Answer Date Recorded Q1: How often do you have a drink containing alc ohol? Never 12/25/2020 Average Number of Drinks Not on file 021 Frequency of Binge Drinking Not on file 12/04 Nutrition Answer Date Recorded Nutrition: EVOO Fat Source Unknown 12/25 Nutrition: Servings of Fruits/Vegetables per Day Not on file 12/25/2020 Dental Answer Date Recorded Dental: Regular Dentist Unknown 12/26/19 21 Sex and Gender Information Value Date Recorded Sex Assigned at Not on file Gender Identity Not on file Sexual Orientation Not on file documented as of this encounter Last Filed Vital Signs Vital Sign Reading Time Taken Comments Blood Pressure 143/86 01/13/2024 5:36 PM CDT Pulse 86 01/13/2024 5:33 PM CDT Temperature 36.3 ??C (97.3 ??F) 01/13/2024 5:33 PM CD T Respiratory Rate 18 01/13/2024 5:33 PM CDT Oxygen Saturation 98% 01/13/2024 5:33 PM CDT Inhaled Oxygen Concentration - - Weight 122 kg (268 lb 11.9 oz) 01/13/2024 5:33 P M CDT Height - - Body Mass Index 38.56 11/09/2023 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 - 01/13/2024 5:45 PM CDT SUBJECTIVE CHIEF COMPLAINT / REASON FOR VISIT Upper respiratory symptoms. HISTORY OF PRESENT ILLNESS Jay Evans is a 23 y.o. male who comes in to Urgent Care today for evaluation of worsening upper respiratory symptoms. Patient goes on to describe nasal congestion and stuffiness, worsening over the course of this week. Patient describes worsening pressure sensation across his cheeks and around his eyes. Patient then also reports a constant soreness in his throat from associated postnasal drainage. Patient finally goes on to describe development of a fever earlier today, along with headaches and fatigue. Patient describes difficulty sleeping over the last couple nights due to symptoms. The patient's social and medical history was reviewed in the electronic medical record. ALLERGIES/CONTRAINDICATIONS No Known Allergies OBJECTIVE VITAL SIGNS BP 143/86 Pulse 86 Temp 36.3 ??C (Temporal) Resp 18 Wt 122 kg SpO2 98% BMI 38.56 kg/m?? PHYSICAL EXAMINATION Constitutional General: He is not in acute distress. Appearance: He is not toxic-appearing. HENT Right Ear: Tympanic membrane normal. Left Ear: Tympanic membrane normal. Nose: Congestion present. Right Sinus: Maxillary sinus tenderness present. Left Sinus: Maxillary sinus tenderness present. Mouth/Throat: Mouth: Mucous membranes are moist. Comments: Posterior pharyngeal wall has a cobblestone pattern. Eyes Conjunctiva/sclera: Conjunctivae normal. Cardiovascular Rate and Rhythm: Normal rate. Pulmonary Effort: Pulmonary effort is normal. No respiratory distress. Neurological General: No focal deficit present. Mental Status: He is alert and oriented to person, place, and time. ASSESSMENT / PLAN #1 Sinusitis Acute Other orders - methylPREDNISolone (MEDROL DOSEPAK) 4 mg tablet; Take 1 tablet (4 mg total) by mouth See Admin Instructions. Follow package directions., Starting Thu01/13/2024, Normal - amoxicillin-pot clavulanate (AUGMENTIN) 875-125 mg per tablet; Take 1 tablet by mouth 2 (two) times a day., Starting Thu01/13/2024, Normal Exam findings are consistent with early acute sinusitis. After review and discussion, patient agreeable to proceed with symptomatic management measures including [id number] Flonase nasal spray. Patient also was prescribed Medrol Dosepak course in efforts to help with congestion and sinus inflammation relief. Proceed with frequent warm compressions and exposure to steam at home. Exam findings today however also did reveal fairly exquisite tenderness on gentle percussion of maxillary sinuses. Patient understands concern for bacterial illness there that may continue to worsen over time even with symptomatic measures above. For the case, patient was also prescribed a backup script of Augmentin, as above. Patient will proceed with use of this antibiotic course only if symptoms worsen significantly at any point after attempting measures above, or if no improvement over the next 3-4 days. In the meantime, patient will keep pushing fluids and allow for rest. If symptoms worsen at any point even after treatment plan above, seek reassessment. Medication side effects were discussed. Concerning symptoms to watch for were discussed. If new or concerning symptoms develop, seek medical attention. Patient verbalizes understanding and acceptance of this plan of care and denies any further needs or questions at this time. Christopher Nunes P.A.-C. documented in this encounter Plan of Treatment Not on file documented as of this encounter Visit Diagnoses Diagnosis Sinusitis Acute- Primary documented in this encounter Care Teams Decontamination Worker Relationship Specialty Start Date End Date Elsewhere, Pcp PCP - General 10/04/19 documented as of this encounter
--- OUTSIDE RECORDS SUMMARY | 2024-03-21 06:06 | XMS_ITS ---
Author Organization [facility] Address [address] [place] [address] Care Team Providers Care Jai Alai Player Name Role Phone Unavailable Unavailable Unavailable Surgery Details Not on file Complications Check Surgery Details section. Procedure Estimated Blood Loss Check Surgery Details section. Procedure Findings Check Surgery Details section. Procedure Specimens Taken Check Surgery Details section.
--- OUTSIDE RECORDS SUMMARY | 2024-03-21 06:06 | XMS_ITS | Clinical Summary ---
Author Organization [facility] Address [address] [place] [address] Care Team Providers Care Delivery Representative Name Role Phone Elsewhere, Pcp Primary Care Provider Unavailabl e Source Comments Patient records contain information from all sites at [facility]. For routine questions regarding patient records, call [phone] during business hours, M-F 8:00 AM - 5:00 PM Central Time. Record requests for emergency care only can be directed to [phone] at any time.[facility] Allergies No known active allergies Medications Medication Sig Dispensed Refills Start Date End Date Status lisinopril-hydroCHLO ROthiazide (PRINZIDE,ZESTORETIC ) 20-25 mg per tablet 09/10/2023 Active omeprazole (PriLOSEC) [address] capsule 09/10/2023 Active albuterol (Ventolin HFA) 90 mcg/actuation inhaler INHALE 2 PUFFS BY MOUTH EVERY 15 MINUTES PRIOR TO EXERCISE AND NEEDED FOR WHEEZING OR SHORTNESS OF BREATH 04/10/2023 Active methylPREDNISolone (MEDROL DOSEPAK) 4 mg tablet Take 1 tablet (4 mg total) by mouth See Admin Instructions. Follow package directions. 21 tablet 01/13/2024 Active amoxicillin-pot clavulanate (AUGMENTIN) 875-125 mg per tablet Take 1 tablet by mouth 2 (two) times a day. 14 tablet 01/13/2024 Active Active Problems Problem Noted Date Diagnosed Date Depressive Disorder Encounters Date Type Department Care Team Description 01/13/2024 5:45 PM CDT Office Visit Urgent Care, [facility], in [place], [place] [address] [place] [phone] Christopher Zee P.A.-C. Sinusitis Acute (Primary Dx) Discharge Disposition: Home or Self Care from Last 3 Months Immunizations Name Administration Dates Next Due BCG 01/30/2003 DTaP (Infanrix, [employer]edia) 05/24/2007,,03/28/2004,12/01/2003 ,2002,2002,2002 HepA Pediatric/Adolescent 05/24/2007,01/29/2006 HepB, Unspecified 2002,2002,02/12/20 02 Hib (PRP-T) (ACTHIB, HIBERIX) 01/29/2006, 004,2002,2002 IPV 05/24/2007, 6,09/26/2005,12/01/2003 ,04/09/2003,2002,2002, 2 Influenza, Unspecified 07/26/2009,09/07/2007,10/2002,07/19/2003 MMR 02/13/2003 MMRV 05/24/2007 Measles / Rubella (discontinued) 12/01/2003 PCV7 (discontinued) 09/16/2006,08/17/2006,2005 STEWART 12/01/2003 Social History Tobacco Use Types Packs/Day Years [...] on file Sexual Orientation Not on file Last Filed Vital Signs Vital Sign Reading [...] oz) 01/13/2024 5:33 P M CDT Height 177.8 cm (5' 10) 11/09/2023 6:50 AM LEAVE SPECIALIST Body Mass Index 38.56 11/09/2023 6:50 AM LEAVE SPECIALIST Plan of Treatment Health Maintenance Due Date Last Done Comments Depression Monitoring (PHQ-9) 2002 Hepatitis C Screening 2002 COVID-19 Vaccine ( season) 2023 02/13/2021, 01/16/2021 Influenza Vaccine (#1) 2023 , 07/26/2020, 11/03/2019, Additional history exists Office Visit for Blood Pressure Check / Re-check 04/13/2024 01/13/2024 Creatinine Level (Kidney Function Test) 12/01/2024 12/01/2023, 11/09/2023, 07/16/2023, Additional history exists Potassium Level 12/01/2024 12/01/2023, 02/0 02/2024, 07/16/2023, Additional history exists Sodium Level 12/01/2024 12/01/2023, 02/0 02/2024, 07/16/2023, Additional history exists DTaP,Tdap,and Td Vaccines (7 - Td or Tdap) 03/19/2025 03/19/2015, 05/24/2007, 02/16/2006, Additional history exists Hepatitis B Vaccines Completed 2002, 2002, 2002 Pneumococcal vaccine (0-64 years) Aged Out 09/16/2006, 08/17/2006, 01/29/2006, Additional history exists No longer eligible based on patient's age to complete this topic HPV Vaccines Completed 12/10/2015, 07/05, 03/19/2015 Meningococcal Vaccine Aged Out 05/18/2017, 015 No longer eligible based on patient's age to complete this topic Procedures Procedure Name Priority Date/Time Associated Diagnosis Comments EXTI COMPREHENSIVE METABOLIC PANEL, S/P Routine 12/01/2023 3:50 PM LEAVE SPECIALIST from Last 3 Months or Most Recently Relevant to Health Maintenance Care Teams Delivery Representative Relationship Specialty Start Date End Date Elsewhere, Pcp PCP - General 10/04/19
--- OUTSIDE RECORDS SUMMARY | 2024-03-21 06:06 | XMS_ITS | Referral Summary ---
Author Organization [facility] Address [address] [place] [address] Care Team Providers Care Embroidery Patternmaker Name Role Phone Elsewhere, Pcp Primary Care Provider Unavailabl e Source Comments Patient records contain information from all sites at [facility]. For routine questions regarding patient records, call [phone] during business hours, M-F 8:00 AM - 5:00 PM Central Time. Record requests for emergency care only can be directed to [phone] at any time.[facility] Encounters Date Type Department Care Team Description 01/13/2024 5:45 PM CDT Office Visit Urgent Care, [facility], in [place], [place] [address] [place] [phone] Christopher Zee, PYolaAYola-CYola Sinusitis Acute (Primary Dx) Discharge Disposition: Home or Self Care from Last 3 Months Allergies No known active allergies Medications Medication [...] Problem Noted Date Diagnosed Date Depressive Disorder Immunizations Name Administration Dates Next Due BCG [...] 177.8 cm (5' 10) 11/09/2023 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
[2024-03-21] MEDS: SODIUM CHLORIDE 0.9 % (FLUSH) 10 ML SYRINGE IVF (06:25)
[2024-03-21] MEDS: LACTATED RINGERS 1000 ML 1,000 ML 100 ML IV ×2 (06:25→10:43)
--- NOTE | 2024-03-21 07:15 | P.GSOP_ITS ---
Operative Note Date of procedure: 03/21/24 Pre-op diagnosis: 1. Chronic cholecystitis. Post-op diagnosis: Same Type of Procedure: 1. Laparoscopic cholecystectomy. Indications: 24-year-old male was seen in clinic for evaluation of recurrent episodes of right-sided abdominal pain. Patient stated that intermittent episodes of abdominal pain usually started on the right side but migrated to epigastrium and sometimes towards the left. The pain was worse in the morning when he woke up and worse after eating spicy and greasy food. The pain was described as throbbing associated with nausea and vomiting. Patient took Omeprazole with no relief of his symptoms. He was seen in the emergency room for evaluation of this pain. In the emergency room his WBC and liver function tests were normal. His lipase was also normal. An abdominal CT showed no dilated loops of small large intestine and no inflammation around his pancreas or gallbladder. Patient had gallbladder ultrasound in the past that showed no cholelithiasis and no sludge. He was referred for HIDA scan that showed ejection fraction of 11%. Patient confirmed reproducibility of his symptoms during the HIDA scan but the pain was not as intense. On clinical exam patient had discomfort to palpation in the right upper quadrant with negative Bennett sign. Given patient's clinical history and his laboratory and imaging findings, his symptoms were not classic for gallbladder disease but possibly due to gallbladder dysfunction/chronic cholecystitis. This was all discussed with the patient and laparoscopic cholecystectomy was discussed. Patient elected to proceed with surgery. The procedure was discussed in detail. The risks associated procedure including inf ection, bleeding, injury to intra-abdominal organs, persistence of pain, and the need for additional procedures were all discussed with the patient, and he agreed to proceed. Procedure Description: After discussing the risks and benefits of the procedure, the patient signed informed consent.? The operative site was marked and the patient was brought to the operating room and placed on the operating table in supine position.? Care was taken to pad the patient's pressure points.?? The patient was then intubated by anesthesia.?? The operative site was then prepped and draped in the usual sterile fashion.? A time-out was then performed. A 5-mm laparoscopy port was placed in the left upper quadrant guided by a 5-mm laparoscope placed into a translucent trochar.~ Passage through the layers of the abdominal wall was visualized with the laparoscope.~ A pneumoperitoneum was established. A 0-degree 5-mm laparoscope was advanced into the abdomen. The abdomen was briefly surveyed, and no adhesions were noted. A 10-mm port were placed infraumbilically and two more 5 mm ports were placed on the right under direct visualization by laparoscope. The camera was then changed to 10 mm 30- degree scope and placed into the abdomen through the 10 mm port. The left upper quadrant port entrance was examined and no injury to intra-abdominal organs was identified. The gallbladder was identified, the fundus grasped and retracted cephalad. Omental adhesions to the gallbladder were taken down with hook cautery. The infundibulum was grasped and retracted laterally, exposing the peritoneum overlying the triangle of Calot. This was then divided and exposed in a blunt fashion and with hook cautery. Common bile duct was not identified but care was taken not to injure it. The cystic duct was clearly identified and bluntly dissected circumferentially. Cystic artery was identified and tissues around it were dissected off. The cystic duct was normal in size. The cystic artery and the cystic duct were clearly going into the gallbladder. The cystic duct was located anterior and medial to the cystic duct. I first clipped cystic artery with 2 Endo clips on the patient's side and a single clip on the specimen side and divided between the clips with scissors. This allowed better visualization of the cystic duct and medial triangle of Calot. The cystic duct was then doubly ligated with surgical clips on the patient's side and singly clipped on the gallbladder side and divided. The gallbladder was dissected from the liver bed in retrograde fashion using hookcautery. A prominent vein was noted on the medial edge of the gallbladder fossa. This was going into the gallbladder. This was clipped with a single 5 mm clip to avoid bleeding. When the gallbladder was free, it was placed into an Endo-Catch bag and removed through the infraumbilical incision. The fascia of the infraumbilical incision had to be enlarged with scissors under direct visualization to accommodate removal of the gallbladder. Surgical site was examined for bleeding. No bleeding was seen in the surgical field. The fascia of the infraumbilical incision was then closed with two interrupted 0-0 vicryl stitches using Amado Aaron needle under direct visualization. Pneumoperitoneum was completely reduced after viewing removal of the trocars under direct vision. The skin was then closed with 4-0 monocryl and steristrips were applied. Instrument, sponge, and needle counts were correct at closure and at the conclusion of the case. The patient was transferred to PACU in stable condition. Findings: no acute inflammation noted around the gallbladder but omentum was adherent to the gallbladder suggestive of possible chronic inflammation. Anesthesia: GETA Surgeon: Antonio Ulloa MD Estimated blood loss (mL): 5 Specimen: Gallbladder Condition: stable Disposition: PACU
--- NOTE | 2024-03-21 07:15 | W.PM.H&PU ---
History & Physical Update History & Physical Update H&P Reviewed and patient assessed: No changes noted
[2024-03-21] MEDS: CEFAZOLIN 2 GM INJ IVP (07:35)
--- NOTE | 2024-03-21 08:07 | W.ANESCHARGE ---
Anesthesia Charges Start Date/Time Anesthesia Start Date: 03/21/24 Anesthesia Start Time: 07:26 Stop Date/Time Anesthesia Stop Date: 03/21/24 Anesthesia Stop Time: 09:01
[2024-03-21] MEDS: BUPIVACAINE 0.25% 30 ML INJECTION (08:09)
[2024-03-21] MEDS: fentaNYL 100 MCG/2 ML inj 50 MCG IVP ×3 (09:08→09:35)
--- NOTE | 2024-03-21 09:23 | W.ANESCHARGE ---
Anesthesia Charges Start Date/Time Anesthesia Start Date: 03/21/24 Anesthesia Start Time: 07:26 Stop Date/Time Anesthesia Stop Date: 03/21/24 Anesthesia Stop Time: 09:01
[2024-03-21] MEDS: ONDANSETRON 2 MG/ML inj 4 MG IVP (09:26)
[2024-03-21] MEDS: METOCLOPRAMIDE HCL 5 MG/ML INJ 10 MG IVP (09:31)
[2024-03-21] MEDS: HYDROCODONE-ACETAMIN 5-325 MG 1 TAB PO (09:59)
[2024-03-21] MEDS: HALOPERIDOL 5 MG/ML INJ 2 MG IV (10:30)
[2024-03-21] MEDS: hydrOXYzine pamoate 25 MG CAPSULE PO (10:50)
[2024-03-21] MEDS: KETOROLAC 30 MG/ML inj IVP (10:50)
--- NOTE | 2024-03-26 09:45 | PC.NURSE ---
Patient and girlfriend Romelia called M/S desk with concern of nausea. Nausea started yesterday and was mild at first, but now patient feels he may throw up. No fevers/chills. Pain well controlled on medication. Has been eating well, perhaps slightly less than usual. Has had a normal BM since surgery and today had an episode of diarrhea. Patient is noted to be lactose intolerant and did eat cheese prior to this episode. Updated Dr. Veronica with above concern. Advised patient, per Dr. Veronica, to follow a low fat, bland diet and avoid dairy. Zofran prescription called in per Dr. Veronica RX: Zofran ODT 4mg Take 1 tablet every 6 hours as needed Qty 10 no refills. Updated Romelia via telephone with instructions, Rx, and advised that if further concerns ER would be an option as well.
--- NOTE | 2024-03-30 21:15 | PC.NURSE ---
Girlfriend Romelia called Med/Surg with concerns that patient having pink/redness around umbilicus incision. Notes small amount of brown crust around area. No extension of pink/redness beyond incision areas. Denies fever/chills. Spoke with Dr. Correa. Encouraged girlfriend to gently nicolle around pink/red area and watch to see if it extends beyond this area. If worsening to call clinic and be seen sooner than 04/04 (when f/u is schedule). Also advised to report chills/fevers. Instructed per surgeon to avoid peroxide/Neosporin to area. Romelia understands and has no further questions.
== END 2024-03-21 11:33 | disposition home or self-care (01) ==
PROVIDERS: PCP Family Medicine; Visit Provider Surgery
PROC: 0FT44ZZ Resection of Gallbladder, Percutaneous Endoscopic Approach (ICD-10-PCS; CPT 47562; principal; 2024-03-21 07:30)
DX: K80.10 Calculus of gallbladder with chronic cholecystitis without obstruction (principal)
CPT/HCPCS: 47562; 00790; 88304; A9270; J0330; J0665; J0690; J1100; J1170; J1630; J1885; J2250; J2405; J2704; J2765; J3010; J3490; J7120

== ENCOUNTER 2024-05-11 14:44 | Emergency (ER) | payer OTHER, MEDICAID, SELFPAY ==
--- NOTE | 2024-05-11 14:57 | ED.GENADULT ---
HPI - General Adult General Chief complaint: Laceration/Wound Stated complaint: L index finger lac-power jai Time Seen by Provider: 05/11/24 14:50 History of Present Illness HPI narrative: Patient is a 24-year-old male who was working on wood work with a standard up our center him across the top of his knuckle on the index finger on the left hand dorsum. At the PIP joint. This causes slight of abrasion and tiny laceration it is not deep. The patient denies range of motion difficulty or weakness in his finger. He is unsure of the last tetanus. He reports he is on lisinopril hydrochlorothiazide for hypertension. Related Data Home Medications ?Medication ?Instructions ?Recorded ?Confirmed lisinopril 20 1 tab PO DAILY 03/01/24 03/21/24 mg-hydrochlorothiazide 25 mg tablet omeprazole 40 mg capsule,delayed 40 mg PO QAM 03/01/24 03/21/24 release Previous Rx's ?Medication ?Instructions ?Recorded polyethylene glycol 3350 17 gram 17 g PO DAILY #14 ea 03/21/24 oral powder packet (Miralax) Allergies Allergy/AdvReac Type Severity Reaction Status Date / Time No Known Drug Allergies Allergy Verified 03/21/24 06:15 Review of Systems Status of ROS: Reports: 6 or more systems reviewed and unremarkable except as noted in History and below PFSH [facility] Medical History Chronic GERD ?K21.9 - Gastro-esophageal reflux disease without esophagitis (ICD-10) HTN (hypertension) ?I10 - Essential (primary) hypertension (ICD-10) Social History Smoking Status: Never smoker Do you use any of these nicotine containing products: None Second hand tobacco smoke exposure: No How often do you have a drink containing alcohol: 2-4 times a month How often do you have six or more drinks on one occasion: Never AUDIT-C Alcohol total score: 2 Non-prescribed substance use: marijuana (any form) Caffeine: No service: No Exam Narrative: Exam Narrative: Objective: Patient is in no apparent distress His left index finger shows a small abrasion over the PIP joint dorsum. He has got no deep wounds no intra-articular type wound. It appears very superficial and more of an abrasion than a laceration. It is about 3/4 of a cm long. And he has got full flexion extension of his finger as well as medial lateral movement and interosseous function. The patient has no bleeding. Distal CMS is intact. Const: Vital Signs, click to edit/add: Vital Signs - 24 hr 05/11/24 14:58 Temperature 97.1 F L Pulse Rate [Pulse Oximeter] 100 Respiratory Rate 18 Blood Pressure [Ri ght Upper Arm] 173/104 H Pulse Oximetry 99 Oxygen Delivery Me thod Room Air Course Vital Signs Vital signs: Initial Vital Signs Temperature 97.1 F L 05/11/24 14:58 Temperature Source Temporal Artery Scan 05/11/24 14:58 Pulse Rate 100 05/11/24 14:58 Respiratory Rate 18 05/11/24 14:58 Blood Pressure 173/104 H 05/11/24 14:58 Blood Pressure Mean 127 H 05/11/24 14:58 Blood Pressure Position Sitting 05/11/24 14:58 Pulse Oximetry 99 05/11/24 14:58 Oxygen Delivery Method Room Air 05/11/24 14:58 Vital Signs Temperature 97.1 F L 05/11/24 14:58 Pulse Rate 100 05/11/24 14:58 Respiratory Rate 18 05/11/24 14:58 Blood Pressure 173/104 H 05/11/24 14:58 Pulse Oximetry 99 05/11/24 14:58 Oxygen Delivery Method Room Air 05/11/24 14:58 Temperature 97.1 F L 05/11/24 14:58 Pulse Rate 100 05/11/24 14:58 Respiratory Rate 18 05/11/24 14:58 Blood Pressure 173/104 H 05/11/24 14:58 Pulse Oximetry 99 05/11/24 14:58 Oxygen Delivery Method Room Air 05/11/24 14:58 Medications Administered Medications: Discontinued Medications Generic Name Dose Route Start Last Admin Trade Name Freq PRN Reason Stop Dose Admin Diphtheria/Tetanus/Acell Pertussis 0.5 ml 05/11/24 15:02 05/11/24 15:18 Tetanus/Diphth/Pertussis 0.5 Ml Syringe IM 05/11/24 15:03 0.5 ml .ONCE ONE Administration Medical Decision Making MDM Narrative Medical decision making narrative: 24-year-old male with a power center abrasion to his PIP joint dorsally on the left index finger. It does appear deep does not appear to be involved joint. At this point I simply would soak the area. Check on his tetanus status and give him 1 of his knee in need within 5 years. Would also have him use do light duty for a couple of days and then soak off the dressing that will be a tube dressing and then cover with a bandage as needed. Return if problems or concerns watch for redness or infection. Discharge Plan Discharge Clinical Impression: Abrasion Patient Disposition: Home, Self-Care Condition: Stable Additional Instructions: Light use of the left hand for a couple of days, keep the dressing on, soak the dressing off in soapy water and then cover the area with a bandage as needed. Watch for redness or infection. Return as needed. Activity Detail: Light use of the left hand until dressing is soaked off in 2 days. Discharge Diet: Heart Healthy (2 gm sodium, low fat) Prescriptions: No Action omeprazole 40 mg capsule,delayed release(DR/EC) 40 mg PO QAM lisinopril-hydrochlorothiazide 20-25 mg tablet 1 tab PO DAILY polyethylene glycol 3350 [Miralax] 17 gram powder in packet 17 g PO DAILY Qty: 14 0RF Follow Up/Referrals: Amy Willis MD [Primary Care Provider] - Stand Alone Forms: [employer] Info Instructions
[2024-05-11 14:58] VITALS: BP 173/104; PULSE 100; RESP 18; TEMP 36.2; O2SAT 99; BMI 38.0
--- OUTSIDE RECORDS SUMMARY | 2024-05-11 15:06 | XMS_ITS | Encounter Summary ---
Author Organization [facility] Address [address] [place] [address] Care Team Providers Care Vocational Rehabilitation Consultant Name Role Phone Elsewhere, Pcp Primary Care Provider Unavailabl e Reason for Visit * Reason Comments Cough Prod; chest pain w/ cough x 2 d. Cold sx's x 1 wk Encounter Details Date Type Department Care Team (Late st Contact Info) Description 04/27/2024 2:45 PM CDT Office Visit Urgent Care, [facility], in [place], [place] [address] [place] [phone] Ansley Pisano, P.A.-CYola [address] [place] [phone] Cough Subacute (Primary Dx); Wheezing; Sinusitis Discharge Disposition: Home or Self Care Social History Tobacco Use Types Packs/Day Years Used Date Smoking Tobacco: Never Smokeless Tobacco: Never Comments:vape Alcohol Use Standard Drinks/Week Comments Never 0 (1 standard drink = 0.6 oz pur e alcohol) AUDIT-C Answer Date Recorded Q1: How often do you have a drink containing alc ohol? Never 12/25/2020 Average Number of Drinks Not on file 021 Frequency of Binge Drinking Not on file 12/04 Dental Answer Date Recorded Dental: Regular Dentist Unknown 12/26/19 21 Sex and Gender Information Value Date Recorded Sex Assigned at Not on file Gender Identity Not on file Sexual Orientation Not on file documented as of this encounter Last Filed Vital Signs Vital Sign Reading Time Taken Comments Blood Pressure 156/115 04/27/2024 2:27 PM CDT Pulse 83 04/27/2024 2:25 PM CDT Temperature 36.9 ??C (98.4 ??F) 04/27/2024 2:25 PM CD T Respiratory Rate 20 04/27/2024 2:25 PM CDT Oxygen Saturation 97% 04/27/2024 2:25 PM CDT Inhaled Oxygen Concentration - - Weight 124 kg (273 lb 5.9 oz) 04/27/2024 2:25 PM CDT Height 176 cm (5' 9.29) 04/27/2024 2:25 PM CDT Body Mass Index 40.03 04/27/2024 2:25 PM CDT documented in this encounter Progress Notes * Ansley Pisano P.A.-C. - 04/27/2024 2:45 PM CDT SUBJECTIVE CHIEF COMPLAINT / REASON FOR VISIT Cough (Prod; chest pain w/ cough x 2 d. Cold sx's x 1 wk) HISTORY OF PRESENT ILLNESS Jay Evans is a 24 y.o. male who presents for evaluation of cough and congestion the past week with worsening symptoms the past couple days. Patient has noted sinus pain and pressure, think secretions, cough has also been worsening the past few days. He notes pain with coughing to mid chest. He also has had wheezing. He does have ventolin inhaler which had previously been prescribed for him for a different respiratory infection. He uses as needed for symptoms since onset of currently illness. The inhaler is up to date with patient stating it was prescribed for him within the past year. He denies needing refill of the medication. Despite using OTC medications and inhaler he has not noticed relief or improvement in symptoms. The patient's social and medical history was reviewed in the electronic medical record. ALLERGIES/CONTRAINDICATIONS No Known Allergies OBJECTIVE VITAL SIGNS BP (!) 156/115 Pulse 83 Temp 36.9 ??C (Temporal) Resp 20 Ht 176 cm Wt 124 kg SpO2 97% BMI 40.03 kg/m?? PHYSICAL EXAMINATION General: Patient is alert and in no acute distress. HEENT: Pupils PERRLA. Conjunctivae clear without hemorrhages or exudates. Auditory canals normal without erythema or edema. TMs pearly pulido and intact without erythema. Sinus tender on exam, nasal congestion. Oral cavity adequately hydrated. Posterior pharynx normal without erythema or drainage present. Neck: Supple without lymphadenopathy. Respiratory: effort is easy. Lung sounds are clear to auscultation. Cardiovascular: S1, S2 present. Normal rate and rhythm. Musculoskeletal: Grossly intact. No deformities noted. Skin: Normal color, temperature and moisture. No rashes or lesions noted. DIAGNOSTICS Labs: No results found for this or any previous visit (from the past 24 hour(s)). Imaging: No results found. Curb 65 ASSESSMENT / PLAN Diagnosis Plan 1. Cough Subacute 2. Wheezing predniSONE (Deltasone) 20 mg tablet 3. Sinusitis doxycycline monohydrate (Adoxa) 100 mg tablet Symptomatic treatments were discussed. Cover your cough. Wash hands frequently. Concerning symptoms to watch for were discussed. If new or concerning symptoms develop, seek medical attention. Patient verbalizes understanding and acceptance of this plan of care and denies any further needs or questions at this time. Ansley Pisano P.A.-C. documented in this encounter Plan of Treatment Not on file documented as of this encounter Visit Diagnoses Diagnosis Cough Subacute- Primary Wheezing Sinusitis documented in this encounter Care Teams Vocational Rehabilitation Consultant Relationship Specialty Start Date End Date Elsewhere, Pcp PCP - General 10/04/19 documented as of this encounter
--- OUTSIDE RECORDS SUMMARY | 2024-05-11 15:06 | XMS_ITS ---
Author Organization [facility] Address [address] [place] [address] Care Team Providers Care Circulation Manager Name Role Phone Unavailable Unavailable Unavailable Surgery Details Not on file Complications Check Surgery Details section. Procedure Estimated Blood Loss Check Surgery Details section. Procedure Findings Check Surgery Details section. Procedure Specimens Taken Check Surgery Details section.
--- OUTSIDE RECORDS SUMMARY | 2024-05-11 15:06 | XMS_ITS | Clinical Summary ---
Author Organization [facility] Address [address] [place] [address] Care Team Providers Care Director Of Casino Marketing Name Role Phone Elsewhere, Pcp Primary Care Provider Unavailabl e Source Comments Patient records contain information from all sites at [facility]. For routine questions regarding patient records, call [phone] during business hours, M-F 8:00 AM - 5:00 PM Central Time. Record requests for emergency care only can be directed to [phone] at any time.[facility] Allergies No known active allergies Medications Medication Sig Dispensed Refills Start Date End Date Status lisinopril-hydroCH LOROthiazide (PRINZIDE,ZESTORET IC) 20-25 mg per tablet 09/10/2023 Active omeprazole [...] Follow package directions. 21 tablet 01/13/2024 Active Additional Information Patient not taking.Reported on 04/27/2024 amoxicillin-pot clavulanate (AUGMENTIN) 875-125 mg per tablet Take 1 tablet by mouth 2 (two) times a day. 14 tablet 01/13/2024 Active predniSONE (Deltasone) 20 mg tabletIndications: Wheezing Take 2 tablets (40 mg total) by mouth daily. 10 tablet 04/27/2024 Active doxycycline monohydrate (Adoxa) 100 mg tabletIndications: Sinusitis Take 1 tablet (100 mg total) by mouth 2 (two) times a day for 7 days. 14 tablet 04/27/2024 05/04/2024 Active Problems Problem Noted Date Diagnosed Date Depressive Disorder Encounters Date Type Department Care Team Description 04/27/2024 2:45 PM CDT Office Visit Urgent Care, [facility], in [place] [address] [place] [address] Ansley Pisano P.A.-C. Cough Subacute (Primary Dx); Wheezing; Sinusitis Discharge Disposition: Home or Self Care from [...] Mass Index 40.03 04/27/2024 2:25 PM CDT Plan of Treatment Health Maintenance Due Date Last Done Comments Depression Monitoring (PHQ-9) 2002 Hepatitis C Screening 2002 COVID-19 Vaccine ( season) 2023 02/13/2021, 01/16/2021 Influenza Vaccine (#1) 2024 , 07/26/2020, 11/03/2019, Additional history exists Office Visit for Blood Pressure Check / Re-check 07/28/2024 04/27/2024 Creatinine Level (Kidney Function Test) 03/10/2025 03/10/2024, 12/01/2023, 11/09/2023, Additional history exists Potassium Level 03/10/2025 03/10/2024, 11/06, 11/09/2023, Additional history exists Sodium Level 03/10/2025 03/10/2024, 11/06, 11/09/2023, Additional history exists DTaP,Tdap,and Td Vaccines (7 [...] Procedure Name Priority Date/Time Associated Diagnosis Comments COMPREHENSIVE METABOLIC PANEL, S/P STAT 11/09/2023 7:12 AM GRID MAKER from Last 3 Months or Most Recently Relevant to Health Maintenance Care Teams Director Of Casino Marketing Relationship Specialty Start Date End Date Elsewhere, Pcp PCP - General 10/04/19
--- OUTSIDE RECORDS SUMMARY | 2024-05-11 15:06 | XMS_ITS | Clinical Summary ---
Author Organization [facility] Address [place], [place] [address] Care Team Providers Care Quality Assurance Specialist Name Role Phone Tonja Polk Primary Care Provider [phone] Allergies No known active allergies Medications Medication Sig Dispensed Refills Start Date End Date Status lisinopril-hydrochlo rothiazide, 20-25 mg, (PRINZIDE, ZESTORETIC) 20-25 mg per tablet Take 1 Tablet by mouth once daily. 09/10/2023 Active omeprazole (PRILOSEC) 40 mg Delayed-Release capsuleIndications:C hronic GERD Take 1 Capsule (40 mg) by mouth once daily before a meal. 90 Capsule 3 02/18/2024 Active Active Problems Problem Noted Date Diagnosed Date Dysfunctional gallbladder 03/10/2024 Chronic GERD 12/03/2023 HTN (hypertension) 12/03/2023 Encounters Date Type Department Care Team Description 04/04/2024 2:15 PM CDT Office Visit [facility] [address] [place] [address] Antonio Ulloa MD Post-op (Laparoscopic cholecystectomy 03/21/24) 04/04/2024 Travel 04/04/2024 Telephone [facility] [address] [place] [address] Antonio Ulloa MD Hospital F/U (Lap [place]) 03/21/2024 6:00 AM CDT Office Visit [facility] at [facility] [address] [place] [phone] Antonio Ulloa MD Surgery Scheduled 03/21/2024 Orders Only [facility] Scanner 1 scan: (1-Ord) [place], LAPAROSCOPIC CHOLECYSTECTOMY, 03/21/2024 03/21/2024 Lab Requisition [facility] [phone] Antonio Ulloa MD 03/10/2024 9:10 AM CDT Preop Visit [facility] [address] [place] [address] Tonja Polk PA Preoperative Exam (Dr. Ulloa-[facility]-Lap [place]-03/21/24) 03/10/2024 Travel 03/07/2024 1:30 PM CDT Office Visit [facility] [address] [place] [address] Antonio Ulloa MD Consult (Gallbladder referred by Tonja GUTIERREZ) 03/07/2024 Travel 03/04/2024 Orders Only [facility] [address] [place] [address] Tonja Polk PA <No scans attached> 03/02/2024 1:19 PM CDT - 03/02/2024 11:59 PM CDT Hospital Encounter [facility] [address] [place] [address] Tonja Polk PA Abdominal pain, RUQ (right upper quadrant) 03/02/2024 Travel 03/01/2024 Orders Only [facility] Scanner 1 scan: (1-Ord) [facility], ABD PELVIS W/CON, 03/01/2024 02/26/2024 10:10 AM CDT Office Visit [facility] [address] [place] [address] Tonja Polk PA Gi Problem (Having stomach pain again-sharp pains and nausea) 02/26/2024 Telephone [facility] [address] [place] [address] Chetan Akhtar MD Appointment 02/26/2024 Travel 02/17/2024 Refill [facility] [address] [place] [address] Tonja Polk PA Refill Request (omeprazole (PRILOSEC) [...] >=3 years) 08/02/2010,09/07 Influenza, IIV4 08/20/2021, 0,07/20/2018,08/25 Influenza,LAIV3 Live Intrana fernando (Flumist) 07/17/2015,09/05/2011 Influenza,LAIV4 Live Intrana fernando (Flumist) 07/26/2020 MMR [...] Sign Reading Time Taken Comments Blood Pressure 151/96 04/04/2024 2:27 PM CDT Pulse 80 04/04/2024 2:27 PM CDT Temperature 37.6 ??C (99.7 ??F) 06/23/2023 4:53 PM CD T Respiratory Rate 14 06/23/2023 4:53 PM CDT Oxygen Saturation 98% 04/04/2024 2:25 PM CDT Inhaled Oxygen Concentration - - Weight 124.7 kg (275 lb) 04/04/2024 2:25 PM CDT with shoes Height 176.5 cm (5' 9.49) 03/10/2024 9:12 AM CD T Body Mass Index 40.04 03/10/2024 9:12 AM CDT Plan of Treatment Health Maintenance Due Date Last Done Comments HIV for age 15-65 2017 Hepatitis C screening for age 18-79 02/12/2020 COVID-19 vaccine series ( season) 2023 02/13/2021, 01/16/2021 Influenza for age 9-49 06/05/2024 1, 07/26/2020, 11/03/2019, Additional history exists BMI (ht [...] Procedure Name Priority Date/Time Associated Diagnosis Comments LAB TRACKING EVENT Routine 03/21/2024 8: 39 AM CDT PATH TISSUE EXAM Routine 03/21/2024 8:27 AM CDT SCAN-OPERATIVE/PROCEDUR E REPORT 03/21/2024 12:00 AM CDT BASIC METABOLIC PANEL Routine 03/10/2024 9:49 AM CDT HTN (hypertension) NM HEPATOBILIARY IMAGING WITH EF Routine 03/02/2024 3:10 PM CDT Abdominal pain, RUQ (right upper quadrant) SCAN-CT INTERPRETATION 12:00 AM CDT from Last 3 Months Results * LAB TRACKING EVENT (03/21/2024 8:39 AM CDT) Other (Other) Client Collect / Unknown 03/21/2024 8:39 AM CDT 03/21/2024 3:16 PM CDT Antonio Ulloa MD LAB BILL ONLY [facility] [address] [place] [address], * PATH TISSUE EXAM (03/21/2024 8:27 AM CDT) Case Report Pathology Report ?Case: [id number] ? Authorizing Provider: ??Antonio Ulloa MD ?Collected: ? 03/21/2024 0827 ? Ordering Location: ? [facility] ?Received: ?03/21/2024 1656 ? Pathologist: ? Ross Hugo MD ? Specimen: ?Gallbladder ? 03/22/2024 2:39 PM CDT [facility] LABORATORY-C ENTRAL LABORATORY Final Diagnosis A) GALLBLADDER, CHOLECYSTECTOMY: 1. Chronic cholecystitis 2. Cholelithiasis and cholesterolosis 3. Negative for dysplasia and malignancy 03/22/2024 2:39 PM CDT [facility] Clinical Information Chronic cholecystitis 03/22/2024 2:39 PM CDT [facility] LABORATORY-C ENTRAL LABORATORY Gross Description A) Received in formalin, labeled with the patient's name and A) gallbladder, is a 7.5 x 1.0 x 2.5 cm intact gallbladder. ??No discrete gallstones are identified. ??There are multiple areas of discrete yellow-pruett possible nodules with a slightly softened appearance identified on the mucosa. ??There is fine yellow stippling in the mucosa; no other lesions are identified. The average wall thickness is 0.2 cm. There is no abnormal wall thickening identified. No cystic duct lymph node is identified. Loss Prevention And Safety Manager sections are submitted in one cassette. TLF 03/21/2024 03/22/2024 2:39 PM CDT [facility] Microscopic Description The final diagnosis is based on microscopic examination of appropriate sections of all specimens. 03/22/2024 2:39 PM CDT [facility] Additional Information Interpreted at [facility] [place] - [address] [facility] [address] [address] 03/22/2024 2:39 PM CDT [facility] Other SPECIMEN FROM GALLBLADDER / Unknown 03/21/2024 8:27 AM CDT 03/21/2024 4:56 PM CDT Antonio Ulloa MD PATHOLOGY/CYTOLOGY [facility] [address] * SCAN-OPERATIVE/PROCEDURE REPORT (03/21/2024 12:00 AM CDT) Scanner OTHER * BASIC METABOLIC PANEL (03/10/2024 9:49 AM CDT) SODIUM 141 136 - 145 mmol/L 03/10/2024 6:51 PM CDT [facility] POTASSIUM 4.7 3.5 - 5.1 mmol/L 03/10/2024 6:51 PM CDT [facility] CHLORIDE 103 98 - 107 mmol/L 03/10/2024 6:51 PM CDT [facility] CO2,TOTAL 26 22 - 29 mmol/L 03/10/2024 6:51 PM CDT [facility] ANION GAP 12 5 - 18 03/10/2024 6:51 PM CDT [facility] GLUCOSE 94 70 - 99 mg/dL 03/10/2024 6:51 PM CDT [facility] CALCIUM 9.6 8.6 - 10.0 mg/dL 03/10/2024 6:51 PM CDT [facility] BUN 10 6 - 20 mg/dL 03/10/2024 6:51 PM CDT [facility] CREATININE 0.80 0.70 - 1.20 mg/dL 03/10/2024 6:51 PM CDT [facility] BUN/CREAT RATIO 13 10 - 20 6:51 PM CDT [facility] eGFR >90 >90 mL/min/1.7 3m2 03/10/2024 6:51 PM CDT [facility] Comment:As of 2021, eG FR is calculated by the CKD-EPI creatinine equation without race adjustment. ??eGFR can be influenced by muscle mass, exercise, and diet. ??The reported eGFR is an estimation only and is only applicable if the renal function is stable. Blood BLOOD SPECIMEN / Unknown Venipuncture / Unknown 03/10/2024 9:49 AM CDT 03/10/2024 9:49 AM CDT Tonja GUTIERREZ CHEMISTRY [facility] [address] [place] [address], [place] * NM HEPATOBILIARY IMAGING WITH EF (03/02/2024 3:10 PM CDT) Anatomical Region Laterality Modality LIVER Nuclear Medicine 03/02/2024 5:09 PM CDT Narrative 03/02/2024 5:09 PM CDT For Patients: ??As a result of the Century Cures Act, medical imaging exams and procedure [...] @ 03/02/2024 5:09:58 PM (Electronically Signed) Tonja BIGGS * SCAN-CT INTERPRETATION (03/01/2024 12:00 AM CDT) Anatomical Region Laterality Modality Other Scanner OTHER from Last 3 Months Care Teams Quality Assurance Specialist Relationship Specialty Start Date End Date Tonja Polk PA [address] [place] [address] PCP - General Physician Punch Machine Operator 03/01/24
--- OUTSIDE RECORDS SUMMARY | 2024-05-11 15:06 | XMS_ITS | Referral Summary ---
Author Organization [facility] Address [address] [place] [address] Care Team Providers Care Service Order Taker Name Role Phone Elsewhere, Pcp Primary Care Provider Unavailabl e Source Comments Patient records contain information from all sites at [facility]. For routine questions regarding patient records, call [phone] during business hours, M-F 8:00 AM - 5:00 PM Central Time. Record requests for emergency care only can be directed to [phone] at any time.[facility] Encounters Date Type Department Care Team Description 04/27/2024 2:45 PM CDT Office Visit Urgent Care, [facility], in [place], [place] [address] [place] [phone] Ansley Pisano P.AMakayla Cough Subacute (Primary Dx); Wheezing; Sinusitis Discharge [...] 04/27/2024 2:25 PM CDT Plan of Treatment Not on file Procedures Procedure Name Priority Date/Time Associated Diagnosis Comments COMPREHENSIVE METABOLIC PANEL, S/P STAT 11/09/2023 7:12 AM LEASE ADMINISTRATOR from Last 3 Months or Most Recently Relevant to Health Maintenance Care Teams Service Order Taker Relationship Specialty Start Date End Date Elsewhere, Pcp PCP - General 10/04/19
[2024-05-11] MEDS: TETANUS/DIPHTH/PERTUSSIS 0.5 ML SYRINGE IM (15:18)
== END 2024-05-11 15:21 | disposition home or self-care (01) ==
LOC: ED 15:04
PROVIDERS: Emergency Provider Family Medicine; PCP Family Medicine
DX: S60.411A Abrasion of left index finger, initial encounter (principal); W31.2XXA Contact with powered woodworking and forming machines, initial encounter
CPT/HCPCS: 90471; 90715; 99283